=== PATIENT | male | born 1990 | race Caucasian/White ===

== ENCOUNTER 2017-02-21 03:23 | Emergency (ER) | payer BC ==
[~2017-02-21] VITALS: Ht 182.9 cm; Wt 70.0 kg
[~2017-02-21 03:23] MED LIST: BACLOFEN10 MG PO; BACTRIM,SEPT1 TABLET PO; CONSTULOSE10 GM/15 M PO; GABAPENTIN300 MG PO; KEFLEX500 MG PO; MOTRIN800 MG PO; NAPROSYN500 MG PO; OXYCODONE HCL5 MG PO; ROXICODONE5 MG PO; SENNA8.6 MG PO; ULTRAM50 MG PO
[2017-02-21] MEDS ORDERED: PERCOCET 5/31 TABLET PO (05:53)
[2017-02-21] MEDS ORDERED: KEFLEX500 MG PO (05:53)
[2017-02-21] MEDS ORDERED: BACTRIM,SEPT1 TABLET PO (05:53)
[2017-02-21 06:25] VITALS: BP 123/58
== END 2017-02-21 06:27 | disposition home or self-care (01) ==
LOC: EME 03:23
PROC: 0H98XZZ Drainage of Buttock Skin, External Approach (ICD-10-PCS; principal; 2017-02-21)
DX: L02.31 Cutaneous abscess of buttock (principal)
CPT/HCPCS: 99281; 99284

== ENCOUNTER 2017-10-27 23:22 | Emergency (ER) | payer OTHER, BC ==
[~2017-10-27] VITALS: Ht 180.3 cm; Wt 69.2 kg
[~2017-10-27 23:22] MED LIST changes: +PERCOCET 5/31 TABLET PO
[2017-10-27 23:25] VITALS: BP 139/90
[2017-10-28] MEDS ORDERED: VALIUM5 MG PO (00:30)
[2017-10-28] MEDS ORDERED: MOTRIN800 MG PO (00:30)
[2017-10-28] MEDS ORDERED: NORCO 7.5/321 TABLET PO (00:30)
== END 2017-10-28 00:42 | disposition home or self-care (01) ==
LOC: EME 23:22
DX: S16.1XXA Strain of muscle, fascia and tendon at neck level, initial encounter (principal); S39.012A Strain of muscle, fascia and tendon of lower back, initial encounter; S29.012A Strain of muscle and tendon of back wall of thorax, initial encounter; V44.5XXA Car driver injured in collision with heavy transport vehicle or bus in traffic accident, initial encounter; Y92.410 Unspecified street and highway as the place of occurrence of the external cause; F17.200 Nicotine dependence, unspecified, uncomplicated
CPT/HCPCS: 72070; 72100; 99281; 99283